=== PATIENT | female | born 1990 | race African-American/Black ===

== ENCOUNTER 2019-10-18 14:23 | Emergency (ER) | payer MEDICAID, OTHER ==
[~2019-10-18] VITALS: Ht 165.1 cm; Wt 86.2 kg
[2019-10-18 14:45] VITALS: BP 120/85
[2019-10-18 16:35] LABS: Urine Bacteria NONE SEEN /hpf (None Seen); Urine Blood 2+ /uL (Negative); Urine Specific Gravity 1.019 (1.001-1.035); Urine WBC 547 /hpf (0 - 5); Urine WBC Clumps PRESENT /hpf (None Seen)
== END 2019-10-18 20:17 | disposition home or self-care (01) ==
LOC: ER 14:23
DX: R10.2 Pelvic and perineal pain (principal); R30.9 Painful micturition, unspecified; Z53.21 Procedure and treatment not carried out due to patient leaving prior to being seen by health care provider
CPT/HCPCS: 81001; 81025

== ENCOUNTER 2022-01-02 11:18 | Emergency (ER) | payer MEDICAID ==
[~2022-01-02] VITALS: Ht 165.1 cm; Wt 86.2 kg
[2022-01-02 11:53] VITALS: BP 146/88
[2022-01-02] MEDS ORDERED: TRAM-297 PO (12:33)
[2022-01-02] MEDS ORDERED: KETOROLAC TROMETH 60MG/2ML VIAL IM ONE (12:45)
== END 2022-01-02 13:48 | disposition home or self-care (01) ==
LOC: ER 11:18
DX: S33.5XXA Sprain of ligaments of lumbar spine, initial encounter (principal); Z79.899 Other long term (current) drug therapy; X58.XXXA Exposure to other specified factors, initial encounter; Y93.89 Activity, other specified; Y92.89 Other specified places as the place of occurrence of the external cause; Y99.8 Other external cause status
CPT/HCPCS: 72100; 96372; 99283; J1885